=== PATIENT | female | born 1995 | race Caucasian/White ===

== ENCOUNTER 2019-07-29 21:06 | Emergency (ER) | payer SELFPAY ==
[~2019-07-29] VITALS: Ht 152.4 cm; Wt 96.0 kg
[2019-07-30 02:18] VITALS: BP 132/74
== END 2019-07-30 02:25 | disposition home or self-care (01) ==
LOC: ER 21:06
DX: S09.8XXA Other specified injuries of head, initial encounter (principal); R68.84 Jaw pain; Y08.89XA Assault by other specified means, initial encounter; Y93.89 Activity, other specified; Y92.89 Other specified places as the place of occurrence of the external cause; Y99.8 Other external cause status
CPT/HCPCS: 70486; 81025; 99284